=== PATIENT | male | born 1950 | race Two or more races ===

== ENCOUNTER 2019-12-17 10:35 | Inpatient (IN) | payer OTHER ==
[~2019-12-17] VITALS: Ht 177.8 cm; Wt 91.6 kg
[2019-12-17] VITALS (8 sets, daily range): BP systolic 117–131; BP diastolic 76–88
[2019-12-17] MEDS ORDERED: fentaNYL 100 mcg/2 mL IV ONE (12:47)
[2019-12-17] MEDS ORDERED: Lidocaine 1% MPF 10mg/ml 5ml ONE (12:55)
[2019-12-17] MEDS ORDERED: VIAGRA100 MG PO (13:16)
[2019-12-17] MEDS ORDERED: ATENOLOL25 MG ORAL (13:16)
[2019-12-17] MEDS ORDERED: PENLAC6.6 M1 TP (13:16)
[2019-12-17] MEDS ORDERED: HYDROCHLOROTH12.5 MG ORAL (13:16)
[2019-12-17] MEDS ORDERED: K-TAB10 MEQ PO (13:16)
[2019-12-17] MEDS ORDERED: TERBINAFINE HC250 MG PO (13:16)
[2019-12-17] MEDS ORDERED: Thrombin 5000 units TOPIC ONE (13:41)
[2019-12-17] MEDS ORDERED: Gelfoam Size TOPIC ONE (13:41)
[2019-12-17] MEDS ORDERED: Bacitracin 50000 Units Vial ONE (13:42)
[2019-12-17] MEDS ORDERED: Rocuronium Bromide 50mg/5ml Inj IV ONE (13:42)
--- NOTE | 2019-12-17 14:00 | Pre-Procedure Note/Attestation ---
Pre-Procedure Note/Attestation Complete Prior to Procedure Planned Procedure: not applicable Procedure Narrative: artificial disc versus acdf C4 to C7 Indications for Procedure Pre-Operative Diagnosis: stenosis C5 to C7 Attestation I attest that I discussed the nature of the procedure; its benefits; risks and complications; and alternatives (and the risks and benefits of such alternatives ), prior to the procedure, with the patient (or the patient's legal retail representative). I attest that, if there was a reasonable possibility of needing a blood transfusion, the patient (or the patient's legal retail representative) was given the [facility] standardized written summary, pursuant to the [place] Blood Safety Act ([place] Health and Safety Code # 1645, as amended). I attest that I re-evaluated the patient just prior to the surgery and that there has been no change in the patient's H&P, except as documented below: Steve Najera MD Dec 17, 2019 14:00
[2019-12-17] MEDS ORDERED: Neostigmine 1mg/ml 10ml Inj ONE (14:30)
[2019-12-17] MEDS ORDERED: Sterile Water Irrig 1000ml IRRIG ONE (14:30)
[2019-12-17] MEDS ORDERED: ePHEDrine 50mg/ml Inj ONE (14:30)
[2019-12-17] MEDS ORDERED: LR 1000ml ONE (14:30)
[2019-12-17] MEDS ORDERED: Succinylcholine 20mg/ml 10ml vial ONE (14:30)
[2019-12-17] MEDS ORDERED: NS Irrig 1000ml ONE (14:30)
[2019-12-17] MEDS ORDERED: Naloxone 0.4mg/ml Inj IVP PRN (15:00)
[2019-12-17] MEDS ORDERED: HYDROcodone/Acetamin 7.5/325 tab ORAL PRN (15:00)
[2019-12-17] MEDS ORDERED: HYDROcodone/Acetamin 5/325 tab ORAL PRN (15:00)
[2019-12-17] MEDS ORDERED: Acetaminophen 650 MG SUPP RECTAL PRN (15:00)
[2019-12-17] MEDS ORDERED: Metoclopramide 10mg/2ml Inj IVP PRN (15:00)
[2019-12-17] MEDS ORDERED: Morphine Sulfate 10mg/ml Inj ONE (15:53)
[2019-12-17] MEDS ORDERED: Glycopyrrolate 0.2mg/ml 1ml Vial ONE (16:11)
--- NOTE | 2019-12-17 16:21 | Anethesia Preoperative Eval ---
Anesthesia Pre-op PMH/ROS General Date of Evaluation: Dec 17, 2019 Time of Evaluation: 14:30 Anesthesiologist: Bar ASA Score: ASA 2 Mallampati Score Class I : Soft palate, uvula, fauces, pillars visible Class II: Soft palate, uvula, fauces visible Class III: Soft palate, base of uvula visible Class IV: Only hard plate visible Mallampati Classification: Class II Surgeon: Reinaldo Diagnosis: Cervical radiculopathy Surgical Procedure: ACDF Anesthesia History: none Family History: no anesthesia problems Allergies: Coded Allergies: No Known Allergies (Unverified , 12/17/19) Patient NPO?: Yes NPO Date: Dec 16, 2019 NPO Time: 1999 Past Medical History Cardiovascular: Reports: HTN - stable; Denies: CAD, [place], valve dz, arrhythmia, other Pulmonary: Denies: asthma, COPD, PAUL, other Gastrointestinal/Genitourinary: Reports: GERD; Denies: CRI, ESRD, other Neurologic/Psychiatric: Reports: other - chronic pain; Denies: dementia, CVA, depression/anxiety, TIA Endocrine: Denies: DM, hypothyroidism, steroids, other HEENT: Denies: cataract (L), cataract (R), glaucoma, NISQUALLY (L), NISQUALLY (R), other Hematology/Immune: Denies: anemia, DVT, bleeding disorder, other Musculoskeletal/Integumentary: Reports: OA; Denies: RA, DJD, DDD, edema, other PMH Narrative: as above PSxH Narrative: None Anesthesia Pre-op Phys. Exam Physician Exam Last Vital Signs Date Time Temp Pulse Resp B/P (MAP) Pulse Ox O2 Delivery O2 Flow Rate FiO2 12/17/19 13:18 97.8 86 18 123/85 (98) 99 12/17/19 13:07 Room Air Constitutional: NAD Neurologic: CN 2-12 intact Cardiovascular: RRR, no M/R/G Respiratory: CTA Gastrointestinal: S/NT/ND Airway Exam Mallampati Score: Class II MO: full Neck: stiff ROM: limited Teeth: missing Dentures: no upper, no lower Anesthesia Pre-op A/P Labs see chart Studies Pre-op Studies: EKG - nsr Risk Assessment & Plan Assessment: ASA 2 Plan: GA with ETT neuromonitoring Pre-Antibiotics Drug: Ancef 2gr. Given Within 1 Hr of Incision: Yes Time Given: 15:20 Patrice Dinero MD Dec 17, 2019 16:21
[2019-12-17] MEDS ORDERED: LR 1000ml 1,000 ML IVLG SCH (16:22)
[2019-12-17] MEDS ORDERED: Hydromorphone 0.5mg/0.5ml inj IVP PRN (16:30)
[2019-12-17] MEDS ORDERED: Acetaminophen (Non formulary) 100 ML IV ONE (16:30)
--- NOTE | 2019-12-17 19:39 | Immediate Post-Op Evaluation ---
Immediate Post-Op Evalulation Immediate Post-Op Evalulation Procedure: ACDF c4-C5 C5-C6 C6-C7 Date of Evaluation: Dec 17, 2019 Time of Evaluation: 19:38 IV Fluids: 1300 Blood Products: none Estimated Blood Loss: 100 Urinary Output: 200 Blood Pressure Systolic: 119 Blood Pressure Diastolic: 79 Pulse Rate: 92 Respiratory Rate: 20 O2 Sat by Pulse Oximetry: 99 Temperature (Fahrenheit): 98.6 Pain Score (1-10): 2 Nausea: No Vomiting: No Complications none Patient Status: reacts, patent, extubated, none Hydration Status: adequate Patrice Dinero MD Dec 17, 2019 19:39
--- NOTE | 2019-12-17 19:40 | Brief Operative Note ---
Immediate Post Operative Note Operative Note Pre-op Diagnosis: C spine stenosis C5 to C7 Procedure: ADR C4/5, C5/6 and C6/7 Post-op Diagnosis: same Post-op Diagnosis: same as pre-op Surgeon: jarrell BACON Lottery Manager: Severino SANCHEZ Anesthesiologist: Kahlil BACON Anesthesia: general Specimen: yes Complications: none Condition: stable Fluids: Per anesthesia records Estimated Blood Loss: volume - 100cc Implant(s) used?: Yes - Steve Londono MD Dec 17, 2019 19:40
[2019-12-17] MEDS: D5 1/2NS 1,000 ML IV SCH (21:30)
--- NOTE | 2019-12-17 21:30 | NUR ---
NURSES NOTE: Received pt from FABIANA Bowden at apprx 2034. Pt A/O x4, states he has pain 6/10 in shoulders. Dilaudid 1mg given IVP- effective. Breathing is even and unlabored on 2L nasal canula. Dressing, anterior neck, clean dry and intact. All due meds will be given. Bed at lowest level. Call light within reach. Pt will continue to be monitored.
[2019-12-17] MEDS: HYDROmorphone 1mg/ml Carpuject IVP PRN (22:04)
[2019-12-17] MEDS: Docusate 100mg cap ORAL SCH (22:21)
--- NOTE | 2019-12-17 22:44 | Operative Note - Dictated ---
DATE OF OPERATION: 12/17/2019 PREOPERATIVE DIAGNOSES: 1. 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 2. C5, C6, C7 stenosis with cervical radiculopathy. 3. Traumatic aggravation, cervical spondylosis and stenosis. 4. Intractable cervicalgia. POSTOPERATIVE DIAGNOSES: 1. 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 2. C5, C6, C7 stenosis with cervical radiculopathy. 3. Traumatic aggravation, cervical spondylosis and stenosis. 4. Intractable cervicalgia. PROCEDURES PREFORMED: 1. Anterior cervical diskectomy, decompression, foraminotomy, and disk replacement, C4-C5. 2. Artificial disk replacement and decompression, C5-C6. 3. Artificial disk replacement, C6-C7. SURGEON: Steve Najera M.D. METAL OFF BEARER: Shahriar Haq, Physician Supervisor [employer]. ANESTHESIOLOGIST: Patrice Dinero M.D. ANESTHESIA: General endotracheal, combined anesthetic. ESTIMATED BLOOD LOSS: 100 mL. INDICATIONS FOR PROCEDURE: A pleasant gentleman with a significant injury to the cervical and lumbar spine. The patient was indicated for surgery. No guarantees of outcome were given. The patient was medically optimized. The patient has had failed a reasonable amount of conservative treatment. The patient was given alternatives including ACDF at three levels for the C4-C5, C5-C6, and C6-C7 levels. The patient also was given alternative for off-label artificial disk replacement from C4-C5, C5-C6, C6-C7, or hybrid construct. The patient was made aware of risks, benefits, and alternatives. The patient has C3-C4 spondylosis and the concern was a three-level fusion with clearly increased adjacent segment risk to C3-C4 and increased cervical pain. With the fusion, there is a high risk of pseudoarthrosis with three levels. I felt that the three-level artificial disk replacement would be the best alternative for the patient. The patient understood risks and signed informed consent form. PROCEDURE IN DETAIL: The patient was medically optimized, subsequently taken to the operating room, intubated by the anesthesiologist, positioned supine with the cervical spine in gentle extension. The arms were taped and tucked with adequate padding. Neuro-monitor was attached. Jurado was inserted. Subsequently, right-sided approach was undertaken. Markings were made initially on the cervical spine under fluoroscopic views. Subsequently, the neck was prepped and draped in usual sterile fashion. Antibiotics were delivered in usual customary fashion. After a right-sided approach was undertaken, platysma was incised in line with the skin incision. The cervical fascia was identified, bluntly dissected, and the prevertebral fascia identified. Carotid pulsation was lateral and distal structures were contralateral. The C6-C7 to C4-C5 levels were exposed. X-ray was taken to confirm the C5-C6 level. Subsequently, longus colli was elevated, C4 to C7. I initially began at the C6-C7 level. I placed Carolina pin at C6 and an important step was to obtain midline view from uncovertebral joint to uncovertebral joint medially and laterally. Therefore, the anterior-posterior view was taken and once I felt comfortable with the position of the pin, I utilized a guide to pastry baker the central location in the medial lateral plane. I placed a second pin at C7 and again using the landmark of the pin. Carolina pin distraction was placed. The microscope was pulled into the view. I began my diskectomy with an annulotomy knife and pituitaries. The disk spaces were collapsed. I was able to elevate them gently and sequentially initially performed the diskectomy and subsequently releasing the posterior anulus and posterior uncovertebral joint laterally of the posterior margin. The PLL was resected. The foraminotomies were generously created and I was able to elevate the C6-C7 level and place artificial disk replacement after trialing under both AP and lateral views in good adequate position. A 19 mm x 15 mm x 5 mm height was inserted. Next, I mobilized retractors to C5-C6 level, placed similar artificial disk replacement at C5-C6 and at C4-C5. There was no weak bone. The bone was quite strong. No osteopenia was noted. I was able to sequentially elevate the disk heights without causing any aberrant neural monitoring changes and subsequently all three levels were able to have artificial disk replacement without subsidence or placing artificial disk replacement in an awkward position. The anterior-posterior and lateral views of the cervical spine had good lordosis. The patient tolerated the procedure well. There were no complications. No CSF leak. No pulsatile bleeding. Subsequently, the wound was copiously irrigated. The platysmas were reapproximated after satisfactory implantation and decompression with 3-0 Monocryl. The skin was reapproximated with 4-0 Monocryl. COMPLICATIONS: None. DISPOSITION: To Recovery in stable condition. Steve Najera M.D. DR: RICK JOB#: [id number] CC:
[2019-12-17] MEDS: ceFAZolin sod 1 GM in D5W 55 ML IV SCH (23:51)
[2019-12-18] VITALS: BP 132/93
[2019-12-18] MEDS: HYDROmorphone 1mg/ml Carpuject IVP PRN ×4 (00:15→14:19)
[2019-12-18 04:00] VITALS: BP 137/88
[2019-12-18 05:44] LABS: HEMATOCRIT 44.3 % (42.0-52.0); HEMOGLOBIN 14.9 G/DL (14.2-18.0); MEAN CORPUSCULAR VOLUME 88 FL (80-99); PLATELET COUNT 293 K/UL (150-450); RED BLOOD COUNT 5.02 M/UL (4.70-6.10); RED CELL DISTRIBUTION WIDTH 11.4 % (11.6-14.8); WHITE BLOOD COUNT 11.5 K/UL (4.8-10.8)
[2019-12-18 05:57] LABS: ANION GAP 10 mmol/L (5-15); BLOOD UREA NITROGEN 10 mg/dL (7-18); CALCIUM 9.5 MG/DL (8.5-10.1); CARBON DIOXIDE 28 MMOL/L (21-32); CHLORIDE 103 MMOL/L (98-107); CREATININE 1.3 MG/DL (0.55-1.30); SODIUM 141 MMOL/L (136-145)
[2019-12-18] MEDS: ceFAZolin sod 1 GM in D5W 55 ML IV SCH ×2 (06:02→14:18)
[2019-12-18] MEDS: HYDROcodone/Acetamin 7.5/325 tab ORAL PRN ×2 (06:09→22:41)
--- NOTE | 2019-12-18 07:21 | NUR ---
HAND OFF: Jurado D/C at 0600. Report given to FABIANA Dumas. Pt left in stable condition.
--- NOTE | 2019-12-18 07:22 | NUR ---
NURSE NOTES: Report received from Francia JUNG. Patient is awake and alert x 4, currently sitting at bedside eating breakfast, on room air, not in respiratory distress, and no complaints of chest pain. Patient is post op with a clean dry and intact dressing. Will continue to follow pain management. Will monitor and assess on how patient tolerates diet. Left hand 18 jerry IV noted with fluids running per MD orders. Will continue to follow plan of care.
[2019-12-18 08:00] VITALS: BP 158/123
--- NOTE | 2019-12-18 08:02 | NUR ---
HAND OFF: Report given to FABIANA Dumas. Pt in stable condition.
--- NOTE | 2019-12-18 08:20 | 48 Hour Post Anesthesia Eval ---
Post Anesthesia Evaluation Procedure: ACDF c4-C5 C5-C6 C6-C7 Date of Evaluation: Dec 18, 2019 Time of Evaluation: 08:19 Blood Pressure Systolic: 142 0: 76 Pulse Rate: 72 Respiratory Rate: 20 Temperature (Fahrenheit): 97.6 O2 Sat by Pulse Oximetry: 98 Airway: patent Nausea: No Vomiting: No Pain Intensity: 2 Hydration Status: adequate Cardiopulmonary Status: stable Mental Status/LOC: patient returned to baseline Follow-up Care/Observations: n/a Post-Anesthesia Complications: none Follow-up care needed: ready to discharge Patrice Dinero MD Dec 18, 2019 08:20
[2019-12-18] MEDS: Docusate 100mg cap ORAL SCH ×2 (08:28→17:30)
[2019-12-18] MEDS: D5 1/2NS 1,000 ML IV SCH ×2 (08:29→17:30)
--- NOTE | 2019-12-18 10:20 | General Progress Note ---
Assessment/Plan Assessment/Plan: 1. Anterior cervical diskectomy, decompression, foraminotomy, and disk replacement, C4-C5. 2. Artificial disk replacement and decompression, C5-C6. 3. Artificial disk replacement, C6-C7. 4. Cervical disc disease PLAN 1. incentive spirometry 2. SCD 3. PT evaluation and therapy 4. Hydration 5. Pain management and resume home meds 6. discharge once stable with outpatient follow up Subjective Allergies: Coded Allergies: No Known Allergies (Unverified , 12/17/19) Subjective asked to assist with postop care Objective Last 24 Hour Vital Signs Date Time Temp Pulse Resp B/P (MAP) Pulse Ox O2 Delivery O2 Flow Rate FiO2 12/18/19 08:20 72 20 98 12/18/19 04:00 98.1 101 18 137/88 (104) 98 12/18/19 00:00 97.7 103 17 132/93 (106) 98 12/17/19 20:30 98.4 99 19 130/88 99 Nasal Cannula 3 12/17/19 20:15 99 18 131/85 99 Nasal Cannula 3 12/17/19 20:00 100 18 121/80 99 Nasal Cannula 3 12/17/19 19:50 101 14 121/83 99 Nasal Cannula 3 12/17/19 19:40 100 17 117/76 98 Simple Mask 6 12/17/19 19:39 92 20 99 12/17/19 19:35 101 11 119/79 99 Simple Mask 6 12/17/19 19:31 98.3 99 19 123/78 99 Simple Mask 6 12/17/19 13:18 97.8 86 18 123/85 (98) 99 12/17/19 13:07 Room Air Intake and Output 12/17/19 12/18/19 19:00 07:00 Intake Total 1740 ml Output Total 1000 ml Balance 740 ml Intake Oral 240 ml IV Total 1500 ml Output Urine Total 900 ml Estimated Blood Loss 100 ml # Voids 1 1 Laboratory Tests 12/18/19 05:05: White Blood Count 11.5H, Red Blood Count 5.02, Hemoglobin 14.9, Hematocrit 44.3 , Mean Corpuscular Volume 88, Mean Corpuscular Hemoglobin 29.7, Mean Corpuscular Hemoglobin Concent 33.6, Red Cell Distribution Width 11.4L, Platelet Count 293, Mean Platelet Volume 6.5, Neutrophils (%) (Auto) , Lymphocytes (%) (Auto) , Monocytes (%) (Auto) , Eosinophils (%) (Auto) , Basophils (%) (Auto) , Sodium Level 141, Potassium Level 4.0, Chloride Level 103 , Carbon Dioxide Level 28, Anion Gap 10, Blood Urea Nitrogen 10, Creatinine 1.3 , Estimat Glomerular Filtration Rate 54.6, Glucose Level 163H, Calcium Level 9.5 Height (Feet): 5 Height (Inches): 10.00 Weight (Pounds): 202 Objective WDWN NAD clear breath sounds bilaterally without rhonchi or wheeze [id number] without MRG NABS nontender no HSM no CCE nonfocal Dean High MD Dec 18, 2019 10:20
[2019-12-18] MEDS: Atenolol 25mg tab ORAL SCH (10:52)
[2019-12-18] MEDS: hydroCHLOROthiazide 12.5mg TAB ORAL SCH (10:52)
[2019-12-18 12:00] VITALS: BP 156/112
--- NOTE | 2019-12-18 12:22 | NUR ---
NURSE NOTES: Contacted Doctor Anila regarding high blood pressure and high heart rate. Order of 0.1 clonidine q4h PRN SBP>150 given
--- NOTE | 2019-12-18 13:54 | NUR ---
P.T Note: P.t evaluation completed and tx initiated per spinal protocol. See P.T evaluation for current functional status.
[2019-12-18] MEDS ORDERED: Propofol 1,000mg/ 100ml btl IV ONE (14:30)
[2019-12-18 16:00] VITALS: BP 140/82
--- NOTE | 2019-12-18 16:32 | NUR ---
CASE MANAGEMENT: INITIAL REVIEW 69YR OLD FEMALE HERE FOR ELECTIVE SURGERY CC: CERVICAL RADICULOPATHY SI: C-SPINE STENOSIS C5-C7 97.8 86 18 123/85 99% ON RA IS: IN SURGERY NOW \: [facility] DCP: HOME WHEN STABLE CASE MANAGEMENT: REVIEW 12/18/19 SI: S/P ADR C4/5 AND C6/7 C-SPINE STENOSIS C5-C7 97.8 103 18 158/123 98% ON RA BG 163 WBC 11.5 IS: CLONIDINE PO X1 IV D5@100ML/HR CATAPRES PO Q4/PRN HYDRODIURIL PO QD IV DILAUDID Q2HR/PRN \: [facility] UN[facility] DCP: HOME WHEN STABLE PLAN: INCENTIVE SPIROMETRY SCD PT EVAL AND THERAPY HYDRATION CONTROL BP
--- NOTE | 2019-12-18 19:30 | NUR ---
HAND-OFF: Report given to Yudi JUNG.Endorsed new medications for high blood pressure.
--- NOTE | 2019-12-18 19:43 | NUR ---
NURSES NOTE: Met pt in bed, A/Ox4, able to express needs. Denies pain currently. Breathing pattern is even and unlabored on RA. No s/s of distress noted. Pt is ambulating without assist but reminded pt to use call button first time ambulating on NOC shift. IV intact, flushing without incident infusing IVF fluids as ordered. Anterior neck dressing clean, dry, intact. All due meds will be given, bed at lowest level, call light within reach.
[2019-12-18 20:00] VITALS: BP 142/106
[2019-12-19] VITALS: BP 152/105
[2019-12-19] MEDS: D5 1/2NS 1,000 ML IV SCH ×2 (03:30→13:30)
[2019-12-19 04:00] VITALS: BP 137/83
--- NOTE | 2019-12-19 07:12 | NUR ---
HAND OFF: Report given to FABIANA Narayanan. Pt in stable condition.
--- NOTE | 2019-12-19 07:25 | NUR ---
NURSE NOTES: Report received from Francia JUNG, rounds made. Patient sitting at bedside, AOx4, calm, no distress on RA, denies pain, SOB, NV. IVF (D5 1/2 NS at 100 ml/hr) infusing to LH, site asymptomatic. Anterior neck surgical site, CDI. Neuros intact, moves all extremities, skin warm, pulses palpable, no NT. Diet to be advanced to post cervical diet, will assess patient tolerance. Call light in reach, bed in lowest position, will continue to monitor.
[2019-12-19 08:00] VITALS: BP 148/105
--- NOTE | 2019-12-19 08:36 | General Progress Note ---
Assessment/Plan Assessment/Plan: 1. Anterior cervical diskectomy, decompression, foraminotomy, and disk replacement, C4-C5. 2. Artificial disk replacement and decompression, C5-C6. 3. Artificial disk replacement, C6-C7. 4. Cervical disc disease PLAN 1. incentive spirometry 2. SCD 3. PT evaluation and therapy 4. Hydration 5. Pain management and resume home meds 6. discharge planning Subjective Allergies: Coded Allergies: No Known Allergies (Unverified , 12/17/19) Subjective asked to assist with postop care Objective Last 24 Hour Vital Signs Date Time Temp Pulse Resp B/P (MAP) Pulse Ox O2 Delivery O2 Flow Rate FiO2 12/19/19 04:00 98.8 91 19 137/83 (101) 95 12/19/19 02:29 98.6 12/19/19 00:00 100.9 98 21 152/105 (121) 96 12/18/19 21:00 Room Air 12/18/19 20:00 99.7 105 21 142/106 (118) 96 12/18/19 16:00 97.6 90 20 140/82 (101) 98 12/18/19 15:14 162/112 12/18/19 12:56 156/112 12/18/19 12:00 97.6 107 20 156/112 (127) 98 12/18/19 10:52 103 158/123 12/18/19 09:00 Room Air Intake and Output 12/18/19 12/19/19 19:00 07:00 Intake Total 710 ml 300 ml Balance 710 ml 300 ml IV Total 710 ml 300 ml # Voids 3 5 Height (Feet): 5 Height (Inches): 10.00 Weight (Pounds): 202 Objective WDWN NAD clear breath sounds bilaterally without rhonchi or wheeze [id number] without MRG NABS nontender no HSM no CCE nonfocal Dean High MD Dec 19, 2019 08:36
--- NOTE | 2019-12-19 09:04 | Diagnostic Imaging Report ---
INDICATION: Pain, intraoperative TECHNIQUE: Intraoperative imaging Fluoroscopy time: 56.2 seconds Total dose: 0.25948 mGym2 Total number of images: 8 COMPARISON: None FINDINGS: Intraoperative images document placement of disc prostheses at the 4 5, C5-6, C6-7. These appear well aligned. IMPRESSION: Intraoperative imaging, as described
--- NOTE | 2019-12-19 09:04 | Diagnostic Imaging Report ---
INDICATION: Pain, intraoperative TECHNIQUE: Intraoperative imaging Fluoroscopy time: 56.2 seconds Total dose: 0.10372 mGym2 Total number of images: 8 COMPARISON: None FINDINGS: Intraoperative images document placement of disc prostheses at the 4 5, C5-6, C6-7. These appear well aligned. IMPRESSION: Intraoperative imaging, as described
[2019-12-19] MEDS: Atenolol 25mg tab ORAL SCH (10:15)
[2019-12-19] MEDS: Docusate 100mg cap ORAL SCH (10:15)
[2019-12-19] MEDS: hydroCHLOROthiazide 12.5mg TAB ORAL SCH (10:15)
[2019-12-19] MEDS: HYDROcodone/Acetamin 7.5/325 tab ORAL PRN (10:19)
[2019-12-19 12:00] VITALS: BP 136/99
[2019-12-19] MEDS ORDERED: NORCO 5-325 TA1 EAC1 ORAL (14:17)
--- NOTE | 2019-12-19 14:45 | NUR ---
NURSE NOTES: Discharge instructions and prescription x1 reviewed with patient and spouse, verbalized understanding. All belongings, prescription x1, discharge instructions given to patient. IV heplock discontinued, no active bleeding. Patient sent down to lobby with RN, in stable condition. Discharged home at 1445.
--- NOTE | 2019-12-23 10:08 | Discharge Summary ---
Discharge Summary Hospital Course Date of Admission Dec 17, 2019 at 12:12 Date of Discharge Dec 19, 2019 at 14:50 Admitting Diagnosis Cervical radiculopathy Reason for Hospitalization: Elective surgery HPI Luis Miguel Bonner is a 69 year old male who was admitted on Dec 17, 2019 at 12:12 for Cervical Radiculopathy Patient was admitted for elective surgery. Consultations Dr High-IM Procedures s/p 12/17/[address] Najera 1. Anterior cervical diskectomy, decompression, foraminotomy, and disk replacement, C4-C5. 2. Artificial disk replacement and decompression, C5-C6. 3. Artificial disk replacement, C6-C7. Hospital Course status post surgery course of recovery uneventful initially IV fluids s/p perioperative antibiotics neurovascular status closely monitored, remained stable incision clean dry and intact pain management was addressed pain was controlled remained hemodynamically stable ambulated with PT fall precautions maintained; safe for ambulation DVT prophylaxis provided use of incentive spirometry was encouraged while in the bed tolerated soft diet , Cepacol lozenges provided as needed for throat discomfort IV fluids discontinued GI prophylaxis provided antiemetics were on board as needed BP was managed with current antihypertensive meds and remained stable voided freely bowel regimen instituted patient was stable for discharge discharge instructions provided follow up with surgeon in the office as advised FINAL DIAGNOSES 1. 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 2. C5, C6, C7 stenosis with cervical radiculopathy. 3. Traumatic aggravation, cervical spondylosis and stenosis. 4. Intractable cervicalgia 5. s/p Anterior cervical diskectomy, decompression, foraminotomy, and disk replacement, C4-C5. Discharge Medications Continued Medications: Atenolol* (Tenormin*) 25 Mg Tablet 25 MG ORAL DAILY for PRESCRIBED, TAB (This prescription has been renewed) Ciclopirox (Penlac) 6.6 Ml Solution 6.6 ML TP DAILY for PRESCRIBE (This prescription has been renewed) Hydrochlorothiazide* (Hydrochlorothiazide*) 12.5 Mg Tablet 12.5 MG ORAL DAILY for HTN, TAB (This prescription has been renewed) Hydrocodone Bit/Acetaminophen 5-325* (Collbran 5-325 Tablet*) 1 Each Tablet 1 TAB ORAL Q4H PRN for For Pain, #40 TAB (This prescription has been renewed) Potassium Chloride (K-Tab) 10 Meq Tablet.er 20 MEQ PO BID for POTASSIUM, TAB Sildenafil Citrate (Viagra) 100 Mg Tablet 100 MG PO NEEDED for ERECTILE DYSFUNCTION , TAB (This prescription has been renewed) Terbinafine Hcl* (Lamisil*) 250 Mg Tablet 250 MG PO DAILY for PRESCRRIBED, TAB (This prescription has been renewed) Discharge Condition Upon Discharge: stable Discharge Vital Signs Last Vital Signs Date Time Temp Pulse Resp B/P (MAP) Pulse Ox O2 Delivery O2 Flow Rate FiO2 12/19/19 12:00 98.7 103 18 136/99 (111) 96 12/19/19 09:00 Room Air 12/17/19 20:30 3 Discharge Disposition Patient was discharged home Discharge Instructions Discharge Instructions Special Instructions I have been assigned to complete a D/C Summary on this account. I was not involved in the patient management Ginna Kincaid NP Dec 23, 2019 10:08
== END 2019-12-19 14:50 | disposition home or self-care (01) | DRG 518 ==
LOC: SDSOVERFLO 12:12 → 3E 21:00
PROC: 0RR30JZ Replacement of Cervical Vertebral Disc with Synthetic Substitute, Open Approach (ICD-10-PCS; principal; 2019-12-17 15:00)
PROC: 0RT30ZZ Resection of Cervical Vertebral Disc, Open Approach (ICD-10-PCS; principal; 2019-12-17 15:00)
DX: M48.02 Spinal stenosis, cervical region (principal); M47.22 Other spondylosis with radiculopathy, cervical region; I10 Essential (primary) hypertension
CPT/HCPCS: 36415; 72040; 76000; 80048; 85025; 86850; 86900; 86901; 87081; 94003; 94150; J2710

== ENCOUNTER 2019-12-31 12:30 | Inpatient (IN) | payer OTHER ==
[~2019-12-31] VITALS: Ht 177.8 cm; Wt 89.4 kg
[~2019-12-31 12:30] MED LIST: ATENOLOL25 MG ORAL; HYDROCHLOROTH12.5 MG ORAL; K-TAB10 MEQ PO; NORCO 5-325 TA1 EAC1 ORAL; PENLAC6.6 M1 TP; TERBINAFINE HC250 MG PO; VIAGRA100 MG PO
[2020-02-13] VITALS (19 sets, daily range): BP systolic 104–144; BP diastolic 66–94
[2020-02-13] MEDS ORDERED: LR 1000ml 1,000 ML IVLG SCH (06:32)
--- NOTE | 2020-02-13 06:38 | Anethesia Preoperative Eval ---
Anesthesia Pre-op PMH/ROS General Date of Evaluation: February 13, 2020 Time of Evaluation: 07:19 Anesthesiologist: Neelam ASA Score: ASA 3 Mallampati Score Class I : Soft palate, uvula, fauces, pillars visible Class II: Soft palate, uvula, fauces visible Class III: Soft palate, base of uvula visible Class IV: Only hard plate visible Mallampati Classification: Class II Surgeon: Reinaldo Diagnosis: Back Pain Surgical Procedure: L2-S1 Laminectomy Anesthesia History: none Family History: no anesthesia problems Allergies: Coded Allergies: No Known Allergies (Unverified , 12/17/19) Medications: see eMAR Patient NPO?: Yes Past Medical History Cardiovascular: Reports: HTN, other - HL Musculoskeletal/Integumentary: Reports: OA Other: obesity - BMI 30 PSxH Narrative: Cervical SX 12/17/19 Anesthesia Pre-op Phys. Exam Physician Exam Last Vital Signs Date Time Temp Pulse Resp B/P (MAP) Pulse Ox O2 Delivery O2 Flow Rate FiO2 02/13/20 06:33 97.8 80 18 144/94 (111) 99 Constitutional: NAD Neurologic: CN 2-12 intact Cardiovascular: RRR Respiratory: CTA Gastrointestinal: S/NT/ND Airway Exam Mallampati Score: Class II MO: full ROM: limited Teeth: intact Anesthesia Pre-op A/P Risk Assessment & Plan Assessment: ASA 3 Plan: GA, SED, GlideScope Status Change Before Surgery: No Pre-Antibiotics Dru Grams Ancef IV Given Within 1 Hr of Incision: Yes Time Given: 07:41 Clint Richter MD February 13, 2020 06:38
[2020-02-13] MEDS ORDERED: Rocuronium Bromide 50mg/5ml Inj IV ONE (06:40)
[2020-02-13] MEDS ORDERED: HYDROcodone/Acetamin 5/325 tab ORAL PRN (06:45)
[2020-02-13] MEDS ORDERED: Meperidine 25mg/0.5ml Inj (FOR RIGORS ONLY) IV PRN (06:45)
[2020-02-13] MEDS ORDERED: oxyCODONE HCL/Acetaminophen 5/325mg ORAL PRN (06:45)
[2020-02-13] MEDS ORDERED: fentaNYL 100 mcg/2 mL IV PRN (06:45)
[2020-02-13] MEDS ORDERED: Atropine Sulfate 0.4mg/ml inj IVP PRN (06:45)
[2020-02-13] MEDS ORDERED: LORazepam Inj 2mg/ml 1ml IV PRN (06:45)
[2020-02-13] MEDS ORDERED: Hydromorphone 0.5mg/0.5ml inj IVP PRN (06:45)
[2020-02-13] MEDS ORDERED: Midazolam 2mg/2ml Inj IVP PRN (06:45)
[2020-02-13] MEDS ORDERED: Metoclopramide 10mg/2ml Inj IVP PRN ×2 (06:45→12:45)
[2020-02-13] MEDS ORDERED: Labetalol 5mg/ml 20ml vial IV PRN (06:45)
[2020-02-13] MEDS ORDERED: DiphenhydrAMINE 50mg/ml Inj IVP PRN (06:45)
[2020-02-13] MEDS ORDERED: HYDROcodone/Acetamin 7.5/325 tab ORAL PRN ×2 (06:45→12:45)
[2020-02-13] MEDS ORDERED: Acetaminophen (Non formulary) 100 ML IV ONE (06:45)
--- NOTE | 2020-02-13 06:55 | Immediate Post-Op Evaluation ---
Immediate Post-Op Evalulation Immediate Post-Op Evalulation Procedure: L2-S1 Laminectomy Date of Evaluation: February 13, 2020 Time of Evaluation: 12:50 IV Fluids: 1500 LR Blood Products: 0 Estimated Blood Loss: 400 Urinary Output: 200 Blood Pressure Systolic: 118 Blood Pressure Diastolic: 79 Pulse Rate: 87 Respiratory Rate: 16 O2 Sat by Pulse Oximetry: 100 Temperature (Fahrenheit): 98.3 Pain Score (1-10): 2 Nausea: No Vomiting: No Complications 0 Patient Status: awake, reacts, patent, extubated, none Hydration Status: adequate Dru Grams Ancef IV Given Within 1 Hr of Incision: Yes Time Given: 07:41 Clint Richter MD February 13, 2020 06:55
[2020-02-13] MEDS ORDERED: Lidocaine 1% Plain 30 ml INJ ONE ×2 (06:59→09:34)
[2020-02-13] MEDS ORDERED: Sterile Water Irrig 1000ml IRRIG ONE (07:00)
[2020-02-13] MEDS ORDERED: LR 1000ml ONE (07:00)
[2020-02-13] MEDS ORDERED: Propofol 1,000mg/ 100ml btl IV ONE (07:00)
[2020-02-13] MEDS ORDERED: NS Irrig 1000ml ONE (07:00)
[2020-02-13] MEDS ORDERED: Sodium Chloride 10ml vial INJ ONE (07:02)
[2020-02-13] MEDS ORDERED: Lidocaine 1% MPF 10mg/ml 5ml ONE ×2 (07:02→11:36)
[2020-02-13] MEDS ORDERED: Dexamethasone 4mg/ml vial ONE (07:02)
[2020-02-13] MEDS ORDERED: fentaNYL 100 mcg/2 mL IV ONE ×2 (07:08→11:42)
[2020-02-13] MEDS ORDERED: Thrombin 5000 units TOPIC ONE (07:21)
[2020-02-13] MEDS ORDERED: Gelfoam Size TOPIC ONE (07:21)
[2020-02-13] MEDS ORDERED: Bupivacaine w/Epi 0.5% 30ml Vial INJ ONE (07:22)
[2020-02-13] MEDS ORDERED: Bacitracin 50000 Units Vial ONE (07:22)
--- NOTE | 2020-02-13 07:38 | Pre-Procedure Note/Attestation ---
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 No prior L spine surgery. Attestation I attest that I discussed the nature of the procedure; its benefits; risks and complications; and alternatives (and the risks and benefits of such alternatives ), prior to the procedure, with the patient (or the patient's legal account development representative). I attest that, if there was a reasonable possibility of needing a blood transfusion, the patient (or the patient's legal account development representative) was given the [place] [employer] standardized written summary, pursuant to the Werner Yareli Blood Safety Act ([place] Health and Safety Code # 1645, as amended). I attest that I re-evaluated the patient just prior to the surgery and that there has been no change in the patient's H&P, except as documented below: Steve Najera MD February 13, 2020 07:38
[2020-02-13] MEDS ORDERED: Phenylephrine 10mg/ml Vial ONE (10:54)
[2020-02-13] MEDS ORDERED: Milk of Magnesia 30ml Ud ORAL PRN (12:45)
[2020-02-13] MEDS ORDERED: Acetaminophen 650 MG SUPP RECTAL PRN (12:45)
--- NOTE | 2020-02-13 12:59 | Brief Operative Note ---
Immediate Post Operative Note Operative Note Chief Complaint: lumbar radiculopathy Pre-op Diagnosis: l2 to s1 stenosis Procedure: l1/l2 to l5/s1 microdecompression. Post-op Diagnosis: lumbar radiculopathy Post-op Diagnosis: same as pre-op Findings: consistent w/pre-op dx studies Surgeon: jarrell [employer] Specialist: ARTEMIO javed Anesthesiologist: Neelam Specimen: none Complications: none Condition: stable Fluids: per anesthesia Estimated Blood Loss: minimal Drains: hemovac Implant(s) used?: No Shahriar Javed February 13, 2020 12:59
--- NOTE | 2020-02-13 13:58 | Diagnostic Imaging Report ---
INDICATION: Pain, intraoperative TECHNIQUE: Intraoperative imaging Fluoroscopy time: 56.2 seconds Total dose: 0.47838 mGym2 Total number of images: 2 COMPARISON: None FINDINGS: 6 intraoperative images demonstrate surgical tool projected posterior to L3, subsequently demonstrate surgical tools projected posterior to the L5-S1 disc and the L1-2 disc. IMPRESSION: Intraoperative imaging, as described
[2020-02-13 14:52] LABS: HEMATOCRIT 36.8 % (42.0-52.0); HEMOGLOBIN 12.5 G/DL (14.2-18.0); MEAN CORPUSCULAR VOLUME 85 FL (80-99); PLATELET COUNT 217 K/UL (150-450); RED BLOOD COUNT 4.36 M/UL (4.70-6.10); RED CELL DISTRIBUTION WIDTH 11.8 % (11.6-14.8); WHITE BLOOD COUNT 14.9 K/UL (4.8-10.8)
--- NOTE | 2020-02-13 15:30 | NUR ---
NURSE NOTES: Patient arrived to unit via bed in no apparent distress. Patient awake and oriented, on 3L NC. SCD's on. Surgical site dressing dry and intact. IV intact, patent. 2 hemovacs compressed, draining sanguinous output. Neuro check assessed. Belongings checked at bedside. Patient updated on plan of care. Side rails upx3, bed low and locked, call light within reach.
[2020-02-13] MEDS: HYDROmorphone 1mg/ml Carpuject IVP PRN (15:58)
--- NOTE | 2020-02-13 16:44 | NUR ---
NURSE NOTES: Notified Dr. High that patient is on unit. Reviewed home medications with MD. Orders for home medications received and entered.
[2020-02-13] MEDS: ceFAZolin sod 1 GM in D5W 55 ML IV SCH (17:15)
[2020-02-13] MEDS: Docusate Sod/Senna tab ORAL SCH (17:32)
--- NOTE | 2020-02-13 19:27 | General Progress Note ---
Assessment/Plan Assessment/Plan: lumbar radiculopathy l2 to s1 stenosis l1/l2 to l5/s1 microdecompression. PLAN 1. incentive spirometry 2. SCD 3. PT evaluation and therapy 4. Hydration 5. Pain management 6. discharge once stable with outpatient follow up Subjective Allergies: Coded Allergies: No Known Allergies (Unverified , 12/17/19) Subjective care noted and reviewed asked to follow up postop Objective Last 24 Hour Vital Signs Date Time Temp Pulse Resp B/P (MAP) Pulse Ox O2 Delivery O2 Flow Rate FiO2 02/13/20 15:15 85 14 124/70 100 Nasal Cannula 3 02/13/20 15:15 97.5 73 16 115/85 100 Nasal Cannula 3 02/13/20 14:45 82 16 129/78 100 Nasal Cannula 3 02/13/20 14:30 86 15 133/82 100 Nasal Cannula 3 02/13/20 14:15 83 17 132/84 100 Nasal Cannula 3 02/13/20 14:15 82 16 137/85 100 Nasal Cannula 3 02/13/20 14:00 81 16 128/89 100 Nasal Cannula 3 02/13/20 13:45 84 20 122/85 100 Nasal Cannula 3 02/13/20 13:30 86 15 126/77 100 Nasal Cannula 3 02/13/20 13:25 81 16 134/74 100 Nasal Cannula 3 02/13/20 13:15 86 15 108/80 100 Nasal Cannula 3 02/13/20 13:00 79 16 112/75 100 Simple Mask 6 02/13/20 12:50 83 14 111/82 100 Simple Mask 6 02/13/20 12:40 91 18 106/80 100 Simple Mask 6 02/13/20 12:38 87 16 100 02/13/20 12:35 98.3 87 16 126/81 100 Simple Mask 6 02/13/20 06:52 Room Air 02/13/20 06:33 97.8 80 18 144/94 (111) 99 Intake and Output 02/12/20 02/13/20 19:00 07:00 # Voids 1 Laboratory Tests 02/13/20 14:35: White Blood Count 14.9H, Red Blood Count 4.36L, Hemoglobin 12.5L, Hematocrit 36.8L, Mean Corpuscular Volume 85, Mean Corpuscular Hemoglobin 28.6, Mean Corpuscular Hemoglobin Concent 33.9, Red Cell Distribution Width 11.8, Platelet Count 217, Mean Platelet Volume 6.2L, Neutrophils (%) (Auto) , Lymphocytes (%) ( Auto) , Monocytes (%) (Auto) , Eosinophils (%) (Auto) , Basophils (%) (Auto) , Differential Total Cells Counted 100, Neutrophils % (Manual) 96H, Lymphocytes % (Manual) 2L, Monocytes % (Manual) 1, Eosinophils % (Manual) 0, Basophils % ( Manual) 0, Band Neutrophils 1, Platelet Estimate Adequate, Platelet Morphology Normal, Red Blood Cell Morphology Normal Height (Feet): 5 Height (Inches): 10.00 Weight (Pounds): 197 Objective WDWN NAD clear breath sounds bilaterally without rhonchi or wheeze [id number] without MRG NABS nontender no HSM no CCE nonfocal Dean High MD February 13, 2020 19:27
--- NOTE | 2020-02-13 19:35 | NUR ---
HAND-OFF: Report given to Cookie JUNG.
--- NOTE | 2020-02-13 22:44 | Operative Note - Dictated ---
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 PROCEDURE PERFORMED: 1. Lumbar laminectomy, partial L1. 2. Lumbar laminectomy, L2, L3, L4, L5, partial S1. SURGEON: Steve Najera MD STATION MECH[employer]IC APPRENTICE: ZAHEER Hastings ANESTHESIOLOGIST: Clint Richter MD ANESTHESIA: General endotracheal combined anesthetic. ESTIMATED BLOOD LOSS: 500 mL. INDICATIONS FOR PROCEDURE: A pleasant gentleman with a significant cervical lumbar injury. The patient had preexisting lumbar spinal stenosis, which was traumatically aggravated. The patient had successful cervical surgery so far with residual symptomatology. The patient was indicated for cervical and lumbar surgery in the past. Informed consent was provided. Lumbar surgery was delayed due to Coronavirus outbreak. The patient wants to proceed with surgery as he could not wait any longer due to severe pain. The patient was indicated for surgery. No guarantees of outcome were given. Informed consent was provided. MRI demonstrated findings corroborating with the symptomatology of the patient. DESCRIPTION OF PROCEDURE: After preoperative medical clearance and optimization, the patient was taken to the operating room, intubated by the anesthesiologist, appropriately positioned prone on the Yasir frame with the abdomen hanging free. The patient's genitalia, eyes, and joints were protected from any excess pressure or torsion. Jurado had been inserted. Eyes were protected. Neuromonitoring was not necessary. MRIs were reviewed once again. The patient had significant stenosis L2 to S1 and mild to moderate central canal stenosis at L1-L2. After surgical pause and antibiotic delivery, the incision cut down to the fascia sharply with the Bovie and subsequently incised the fascia inline with the spinous processes. I exposed the L1-L2 to L5-S1. Essentially the top of L2 and bottom of L5. The facet joints were protected. The intralaminar space was identified. Localizing x-ray was taken on two occasions before and after surgery confirming decompression from the top of the L2 and partial L1 down to partial S1. Once localizing x-ray was taken, I removed the interspinous ligament at L5-S1 and L1-L2. Using a Alfred, I removed the spinous processes. Using a Leksell, I removed closed portions of the lamina and subsequently using a drill, I thinned the lamina down to the ligamentum flavum. Once the lamina was thinned, I used curettes with technique using a microscope to free the ligamentum flavum and dura from the bony structures and performed laminectomy from L5-L2. Cephalad aspect of L2 was decompressed. Also decompressed the L1-L2 interlaminar space by performing a partial L1 laminectomy. Also decompressed the S1 region performing partial laminectomy of S1. Intralaminar spaces at L1-L2, L2-L3, L3-L4 and L4-L5 were decompressed. Subsequently lateral recess was decompressed. Foraminotomies were generous and ligamentum was removed. There was no dural tear. No pressure of the nerve roots was exerted anytime. There was disc protrusions noted at multiple levels including L4-L5 and L5-S1 levels in short the worst regions. Subsequently, after hemostasis was obtained, two subfascial drains were placed. The fascia was reapproximated after copious irrigation and hemostasis controlled with bipolar and FloSeal. Subsequently 2-0 was used for the dermis, 3-0 Monocryl for skin, Steri-Strips for the final layer. There were no complications. Dressing was placed in the patient's lumbar spine and in stable condition the drapes were removed. The patient was returned back to supine with the spine lift team. COMPLICATIONS: None. DISPOSITION: To recovery in stable condition. Steve Najera M.D. DR: Marie JOB#: [id number] CC:
[2020-02-14] VITALS: BP 100/59
[2020-02-14 04:00] VITALS: BP 111/67
--- NOTE | 2020-02-14 07:30 | NUR ---
NURSE NOTES: Patient is in bed awake and able to verbalize needs. Stable. Denies pain or SOB. Patient instructed to use call light for assistance, verbalized understanding. Hemovac x2 noted and compressed, bloody drainage noted. Patient is in bed in locked and lowest position with call light within reach. All needs met at this time. Will continue to monitor.
[2020-02-14 08:00] VITALS: BP 109/72
--- NOTE | 2020-02-14 08:00 | NUR ---
HAND-OFF: Report given to FABIANA Cole.
[2020-02-14] MEDS: Atenolol 25mg tab ORAL SCH (09:00)
[2020-02-14] MEDS: hydroCHLOROthiazide 12.5mg TAB ORAL SCH (09:00)
[2020-02-14] MEDS: ceFAZolin sod 1 GM in D5W 55 ML IV SCH ×3 (09:05)
[2020-02-14] MEDS: Docusate Sod/Senna tab ORAL SCH ×2 (09:05→18:20)
[2020-02-14 11:52] VITALS: BP 106/73
[2020-02-14] MEDS: HYDROcodone/Acetamin 7.5/325 tab ORAL PRN (13:37)
--- NOTE | 2020-02-14 15:30 | NUR ---
CASE MANAGEMENT: INITIAL REVIEW 70YR OLD MALE FROM HOME; HERE FOR ELECTIVE CC: BACK PAIN SI:TRAUMATIC SPONDYLOPATHY L2 TO S1 97.8 80 18 144/94 99% ON RA WBC 14.9 IS:IV D5@ 75ML/HR K-DUR PO BID IV DILAUDID Q2HR/PRN \: 3E MED SURG CASE MANAGEMENT: REVIEW 02/14/2020 SI:S/P LUMBAR LAMINECTOMY, PARTIAL L1, L2, L3, L4 -L5, L5-S1 TRAUMATIC SPONDYLOPATHY L2 TO S1 97.8 80 18 144/94 99% ON RA WBC 14.9 IS:IV D5@ 75ML/HR K-DUR PO BID IV DILAUDID Q2HR/PRN \: 3E MED SURG PLAN: PT EVAL AND THERAPY HYDRATION DC PLANNING SOON
[2020-02-14 16:00] VITALS: BP 94/72
--- NOTE | 2020-02-14 16:32 | General Progress Note ---
Assessment/Plan Assessment/Plan: lumbar radiculopathy l2 to s1 stenosis l1/l2 to l5/s1 microdecompression. PLAN 1. incentive spirometry 2. SCD 3. PT evaluation and therapy 4. Hydration 5. Pain management as is 6. discharge soon Subjective Allergies: Coded Allergies: No Known Allergies (Unverified , 12/17/19) Subjective care noted and reviewed RX written to the pharmacy Objective Last 24 Hour Vital Signs Date Time Temp Pulse Resp B/P (MAP) Pulse Ox O2 Delivery O2 Flow Rate FiO2 02/14/20 11:52 98.3 89 18 106/73 (84) 96 02/14/20 09:00 Room Air 02/14/20 08:00 98.8 89 18 109/72 (84) 97 02/14/20 04:00 98.2 78 18 111/67 (82) 100 02/14/20 00:00 98.7 81 18 100/59 (73) 98 02/13/20 21:00 Nasal Cannula 2.0 02/13/20 20:00 98.5 81 16 104/66 (79) 99 02/13/20 18:00 98.2 83 16 113/76 (88) 99 02/13/20 17:00 84 16 106/81 (89) 100 Intake and Output 02/13/20 02/14/20 19:00 07:00 Intake Total 655 ml Output Total 552 ml Balance 103 ml Intake Oral 400 ml IV Total 255 ml Output Urine Total 550 ml Drainage Total 2 ml Height (Feet): 5 Height (Inches): 10.00 Weight (Pounds): 197 Objective WDWN NAD clear breath sounds bilaterally without rhonchi or wheeze [id number] without MRG NABS nontender no HSM no CCE nonfocal Dean High MD February 14, 2020 16:32
--- NOTE | 2020-02-14 16:38 | NUR ---
P.T Note: late entry 0900 P.T evaluation completed and tx initiated per spinal protocol. See P.T evaluation for full report.
--- NOTE | 2020-02-14 18:00 | NUR ---
BP 117/79 at 1800. Hemovac#1 30ml bloody output. Hemovac#2 15ml bloody output
--- NOTE | 2020-02-14 19:34 | NUR ---
HAND-OFF: Report given to Tony JUNG. Patient is stable.
--- NOTE | 2020-02-14 19:40 | NUR ---
NURSE NOTES: Received report from FABIANA Cole. Patient is seen sitting in chair, comfortable and calm. Patient denies any pain as of the moment. On room air and in no apparent distress. Hemovac noted in the LL back. Jurado noted draining well to gravity. Will continue to monitor.
[2020-02-14 20:00] VITALS: BP 113/77
[2020-02-14] MEDS: HYDROmorphone 1mg/ml Carpuject IVP PRN (20:43)
[2020-02-15] VITALS: BP 114/75
[2020-02-15] MEDS: HYDROcodone/Acetamin 7.5/325 tab ORAL PRN (00:28)
[2020-02-15 04:00] VITALS: BP 124/102
--- NOTE | 2020-02-15 07:43 | NUR ---
HAND-OFF: Report given to FABIANA SALAMANCA.
[2020-02-15 08:00] VITALS: BP 114/86
[2020-02-15] MEDS: Atenolol 25mg tab ORAL SCH (09:16)
[2020-02-15] MEDS: hydroCHLOROthiazide 12.5mg TAB ORAL SCH (09:17)
[2020-02-15] MEDS: Docusate Sod/Senna tab ORAL SCH (09:17)
--- NOTE | 2020-02-15 10:25 | NUR ---
NURSE NOTES: Handoff received from Tony JUNG. Patient is awake and alert, no complaints of pain. R hand IV is patent and asymptomatic running IVF as ordered. Jurado catheter is patent and draining to gravity, hemovac drains are compressed and have no output. Surgical site dressing is slightly stained but is intact. Bed is in low and locked position, side rails up x2, call light is within reach. Addendum: 02/15/20 at 1038 by Aneudy Albert RN RN Time stamp error, note made at 1957
--- NOTE | 2020-02-15 10:38 | General Progress Note ---
Assessment/Plan Assessment/Plan: lumbar radiculopathy l2 to s1 stenosis l1/l2 to l5/s1 microdecompression. PLAN 1. incentive spirometry 2. SCD 3. PT evaluation and therapy 4. Hydration 5. Pain management as is 6. discharge planning Subjective Allergies: Coded Allergies: No Known Allergies (Unverified , 12/17/19) Subjective care noted and reviewed out of bed Objective Last 24 Hour Vital Signs Date Time Temp Pulse Resp B/P (MAP) Pulse Ox O2 Delivery O2 Flow Rate FiO2 02/15/20 09:16 102 114/86 02/15/20 08:00 99.5 102 18 114/86 (95) 98 02/15/20 04:00 99.3 109 18 124/102 (109) 98 02/15/20 00:58 98.7 02/15/20 00:00 98.7 94 18 114/75 (88) 98 02/14/20 21:13 97.5 02/14/20 21:00 Room Air 02/14/20 20:00 98.6 68 18 113/77 (89) 98 02/14/20 16:00 97.5 91 18 94/72 (79) 100 02/14/20 11:52 98.3 89 18 106/73 (84) 96 Height (Feet): 5 Height (Inches): 10.00 Weight (Pounds): 197 Objective WDWN NAD clear breath sounds bilaterally without rhonchi or wheeze [id number] without MRG NABS nontender no HSM no CCE nonfocal Dean High MD February 15, 2020 10:38
[2020-02-15 12:00] VITALS: BP 131/78
[2020-02-15 15:55] VITALS: BP 110/68
== END 2020-02-15 17:26 | disposition home or self-care (01) | DRG 517 ==
LOC: SDSOVERFLO 02-13 05:42 → 3E 02-13 15:30
PROC: 01NB0ZZ Release Lumbar Nerve, Open Approach (ICD-10-PCS; principal; 2020-02-13 07:30)
DX: M54.16 Radiculopathy, lumbar region (principal); M48.061 Spinal stenosis, lumbar region without neurogenic claudication
CPT/HCPCS: 36415; 72020; 76000; 85007; 85025; 86850; 86900; 86901; 87081; 94003; 94150; C9399; J2370; J2405; J8499